=== PATIENT | male | born 1960 | race Caucasian/White ===

== ENCOUNTER 2024-02-23 22:48 | Emergency (ER) | payer SELFPAY ==
[2024-02-23 23:52] LABS: CORONAVIRUS COVID-19 NAA POSITIVE (NEGATIVE); INFLUENZA A NAA NEGATIVE (NEGATIVE); INFLUENZA B NAA NEGATIVE (NEGATIVE)
== END 2024-02-24 00:11 | disposition home or self-care (01) ==
LOC: VM.ED 22:48
DX: U07.1 COVID-19 (principal)
CPT/HCPCS: 0240U; 99283; 99284

== ENCOUNTER 2024-07-20 13:33 | Emergency (ER) | payer SELFPAY ==
[2024-07-20 13:44] LABS: BASOPHILS PERCENT AUTO 0.4 % (0.2-1.2); EOSINOPHILS ABSOLUTE AUTO 0.3 x10^3/uL (0.0-0.5); EOSINOPHILS PERCENT AUTO 4.4 % (0.0-4.0); HEMATOCRIT 40.6 % (40.0-52.0); IMMATURE GRAN ABSOLUTE AUTO 0.02 x10^3/uL (0.00-0.07); LYMPHOCYTES ABSOLUTE AUTO 2.3 x10^3/uL (1.0-4.8); LYMPHOCYTES PERCENT AUTO 30.9 % (25.0-50.0); MEAN CORPUSCULAR HEMOGLOBIN 30.4 pg (26.0-32.0); MEAN CORPUSCULAR HGB CONC 34.5 g/dL (32.0-36.0); MEAN CORPUSCULAR VOLUME 88.3 fL (78.0-93.0); MONOCYTES ABSOLUTE AUTO 0.4 x10^3/uL (0.0-0.8); NEUTROPHILS ABSOLUTE AUTO 4.3 x10^3/uL (1.8-7.7); PLATELET COUNT,PLT 225 x10^3/uL (130-400); WHITE BLOOD CELL COUNT,WBC 7.3 x10^3/uL (4.0-10.0)
[2024-07-20] MEDS: hydrALAZINE 20 MG/ML SDV IVPUSH ONE (13:47)
[2024-07-20 14:02] LABS: A/G RATIO 1.26; ALANINE AMINOTRANSFERASE,ALT 26 U/L (16-63); ALBUMIN 3.9 g/dL (3.4-5.0); ALKALINE PHOSPHATASE 119 U/L (46-116); ANION GAP 12.1 mmol/L (5-15); ASPARTATE AMNIOTRANSFERASE,AST 15 U/L (15-37); BILIRUBIN TOTAL 0.4 mg/dL (0.2-1.0); BLOOD UREA NITROGEN,BUN 14 mg/dL (7-18); CALCIUM 8.9 mg/dL (8.5-10.1); CARBON DIOXIDE,CO2 29 mmol/L (21-32); CHLORIDE,CL 103 mmol/L (98-107); CREATININE 1.3 mg/dL (0.70-1.30); ESTIMATED GFR 69 mL/min (>=60); GLUCOSE RANDOM 107 mg/dL (70-99); POTASSIUM,K 4.1 mmol/L (3.5-5.1); SODIUM,NA 140 mmol/L (136-145)
[2024-07-20] MEDS: Losartan 50 MG Tab PO ONE (14:06)
== END 2024-07-20 14:49 | disposition home or self-care (01) ==
LOC: VM.ED 13:33 → SUPCPDRO 13:33 → MERGE 13:33 → VM.ED 14:49
DX: I10 Essential (primary) hypertension (principal); Z91.013 Allergy to seafood
CPT/HCPCS: 80053; 85025; 93005; 96374; 99284-25; A9270-GY; J0360

== ENCOUNTER 2025-02-24 08:52 | Emergency (ER) | payer MEDICAID | END 2025-02-24 09:39 | disposition left against medical advice (07) | LOC: VM.ED 08:52 | DX: R05.9 Cough, unspecified (principal); R19.7 Diarrhea, unspecified; R53.83 Other fatigue; M79.10 Myalgia, unspecified site; Z53.29 Procedure and treatment not carried out because of patient's decision for other reasons; I10 Essential (primary) hypertension; F17.200 Nicotine dependence, unspecified, uncomplicated; Z86.16 Personal history of COVID-19; Z91.013 Allergy to seafood | CPT/HCPCS: 99283 ==